=== PATIENT | male | born 1960 | race African-American/Black ===

== ENCOUNTER 2025-06-08 08:15 | Inpatient (IN) | payer MEDICARE, MEDICAID ==
[~2025-06-08] VITALS: Ht 180.3 cm; Wt 67.6 kg
[~2025-06-08 08:15] MED LIST: AMLO2.5T2; ASPI-1497; CALC0.253 PO; CLON0.1T PO; CLONIDINE; CLOP-31; CLOP75TA33 PO; FERR325T30 PO; FURO20TA4 PO; HYDR100T31 PO; ISOS10TA95 PO; LISI-186; METO25TA6 PO; NIFE-32 PO; OMEP20CA14 PO; SIMV-43 PO; SODI650T PO
[2025-06-08 08:59] LABS: BASOPHILS % 1.8 % (0.0-2.0); EOSINOPHILS % 9.7 % (0.0-5.0); HEMATOCRIT. 36.4 % (42.0-52.0); HEMOGLOBIN. 12.4 g/dL (14.0-18.0); LYMPHOCYTES % 35.9 % (20.0-50.0); MEAN PLATELET VOLUME 7.3 fl (7.4-10.4); MONOCYTES % 10.8 % (2.0-8.0); NEUTROPHILS % 41.8 % (40.0-76.0); PLATELET 199 x1000/uL (130-400); RED BLOOD CELL COUNT 4.06 mill/uL (4.7-6.1); RED CELL DISTRIBUTION WIDTH 14.1 % (11.6-14.6)
[2025-06-08 09:06] LABS: INR 0.9
[2025-06-08 09:14] LABS: UREA NITROGEN BLOOD 14 mg/dL (9-23)
[2025-06-08 09:15] LABS: ASPARTATE AMINOTRANSFERASE 19 IU/L (<34); TROPONIN I HIGH SENSITIVITY 50 ng/L (3.0-53)
[2025-06-08 09:16] LABS: BILIRUBIN DIRECT 0.1 mg/dL (<=3.0); BILIRUBIN TOTAL 0.3 mg/dL (0.1-1.0); PROTEIN TOTAL 6.2 g/dL (6.0-8.3)
[2025-06-08 09:27] LABS: CREATININE 3.8 mg/dL (0.6-1.3)
[2025-06-08 10:22] LABS: CLARITY URINE CLEAR (CLEAR); COLOR URINE YELLOW (YELLOW); GLUCOSE URINE TRACE (NEGATIVE); KETONES URINE NEGATIVE (NEGATIVE); LEUKOCYTE ESTERASE URINE NEGATIVE (NEGATIVE); NITRITE URINE NEGATIVE (NEGATIVE); OCCULT BLOOD URINE NEGATIVE (NEGATIVE); PH URINE >=9.0 (4.5-8.0); PROTEIN URINE 3+ (NEGATIVE); SPECIFIC GRAVITY URINE 1.006 (1.005-1.030); UROBILINOGEN URINE 0.2 E.U./dL (0.2-1.0)
[2025-06-08] MEDS: HYDRALAZINE 20MG/ML VIAL IV SCH (10:51)
[2025-06-08 11:29] LABS: HYALINE CASTS URINE 0-5 /lpf
[2025-06-08 11:30] LABS: BACTERIA URINE NONE SEEN; RBC URINE NONE SEEN /hpf (0-2); SQUAMOUS EPITHELIAL CELL URINE NONE SEEN /lpf (RARE/1+); WBC URINE 0-2 /hpf (0-2)
[2025-06-08 12:38] LABS: TROPONIN I HIGH SENSITIVITY 54 ng/L (3.0-53)
[2025-06-08] MEDS ORDERED: ONDANSETRON HCL 4MG/2ML INJ IV PRN (15:00)
[2025-06-08] MEDS ORDERED: ACETAMINOPHEN 325MG TABLET PO PRN (15:00)
[2025-06-08] MEDS ORDERED: NALOXONE HCL 0.4MG/ML VIAL IV PRN (15:00)
[2025-06-08] MEDS ORDERED: MORPHINE SULFATE 2 MG/ML INJ (NOT FOR IM USE) IV PRN (15:00)
[2025-06-08] MEDS ORDERED: MAGNESIUM/ALUMINUM HYDROXIDE/SIMETHICONE 30ML UDC PO PRN (15:00)
[2025-06-08] MEDS ORDERED: ZOLPIDEM TARTRATE 5MG TABLET PO PRN (15:00)
[2025-06-08] MEDS: LABETALOL 5MG/ML 4ML INJ IV SCH (15:08)
[2025-06-08] MEDS: ASPIRIN 325MG EC TABLET PO SCH (15:20)
[2025-06-08 15:45] VITALS: BP 152/87; PULSE 73; RESP 17; TEMP 36.3; TEMP 36.3624; O2SAT 96
[2025-06-08] MEDS: ENOXAPARIN 40MG/0.4ML SYR SUBCUT SCH (15:50)
[2025-06-08] MEDS: AMLODIPINE 5MG TABLET PO SCH (15:51)
[2025-06-08 16:00] VITALS: BP 152/87; PULSE 73; RESP 17; TEMP 36.3; O2SAT 96
[2025-06-08] MEDS: GUAIFENESIN-DM 200MG-20MG/10ML UDC PO PRN (17:02)
[2025-06-08] MEDS: FUROSEMIDE 20MG TABLET PO SCH (17:03)
[2025-06-08] MEDS: HYDRALAZINE HCL 100MG TABLET PO SCH (17:04)
[2025-06-08] MEDS: HYDROCODONE/ACETAMINOPHEN 5/325MG TABLET PO PRN (17:12)
[2025-06-08 20:00] VITALS: BP 166/103; PULSE 58; RESP 18; TEMP 35.6; O2SAT 96
[2025-06-08] MEDS: METOPROLOL TARTRATE 25MG TABLET PO SCH (21:00)
[2025-06-08] MEDS: CLONIDINE 0.1MG TABLET PO SCH (21:01)
[2025-06-09] VITALS (11 sets, daily range): BP systolic 159–189; BP diastolic 84–110; PULSE 8–86; RESP 18–20; TEMP 36.2–36.6696; O2SAT 95–99
[2025-06-09 00:58] LABS: TROPONIN I HIGH SENSITIVITY 68 ng/L (3.0-53)
[2025-06-09] MEDS: CLONIDINE 0.1MG TABLET PO PRN (05:27)
[2025-06-09 07:48] LABS: BASOPHILS % 2.5 % (0.0-2.0); EOSINOPHILS % 8.7 % (0.0-5.0); HEMATOCRIT. 39.8 % (42.0-52.0); HEMOGLOBIN. 13.3 g/dL (14.0-18.0); LYMPHOCYTES % 24.8 % (20.0-50.0); MEAN PLATELET VOLUME 8.0 fl (7.4-10.4); MONOCYTES % 12.2 % (2.0-8.0); NEUTROPHILS % 51.8 % (40.0-76.0); PLATELET 195 x1000/uL (130-400); RED BLOOD CELL COUNT 4.44 mill/uL (4.7-6.1); RED CELL DISTRIBUTION WIDTH 14.1 % (11.6-14.6)
[2025-06-09 08:12] LABS: UREA NITROGEN BLOOD 25.0 mg/dL (9-23)
[2025-06-09] MEDS: PANTOPRAZOLE SODIUM 40 MG/VIAL IV SCH (08:12)
[2025-06-09] MEDS: LISINOPRIL 5MG TABLET PO SCH (08:13)
[2025-06-09] MEDS: CALCITRIOL 0.25MCG CAPSULE PO SCH (08:14)
[2025-06-09] MEDS: ASPIRIN 81MG EC TABLET PO SCH (08:14)
[2025-06-09] MEDS: CLOPIDOGREL 75MG TABLET PO SCH (08:14)
[2025-06-09 08:30] LABS: CREATININE 5.7 mg/dL (0.6-1.3)
[2025-06-09 08:33] LABS: TROPONIN I HIGH SENSITIVITY 74 ng/L (3.0-53)
[2025-06-09 10:02] LABS: *AMPHETAMINES SCREEN URINE NEGATIVE (NEGATIVE)
[2025-06-09 10:03] LABS: *BARBITURATES SCREEN URINE NEGATIVE (NEGATIVE); *BENZODIAZEPINES SCREEN URINE NEGATIVE (NEGATIVE)
[2025-06-09 10:04] LABS: *COCAINE SCREEN URINE NEGATIVE (NEGATIVE); CANNABINOID URINE SCREEN NEGATIVE (NEGATIVE); ECSTASY MDMA SCREEN URINE NEGATIVE (NEGATIVE); METHADONE URINE SCREEN NEGATIVE (NEGATIVE); OPIATES URINE SCREEN NEGATIVE (NEGATIVE); PHENCYCLIDINE URINE SCREEN NEGATIVE (NEGATIVE)
[2025-06-09] MEDS: AMLODIPINE 5MG TABLET PO SCH (12:00)
[2025-06-09] MEDS: ENOXAPARIN 30MG/0.3ML SYR SUBCUT SCH (12:00)
[2025-06-09] MEDS: LISINOPRIL 10MG TABLET PO SCH (12:00)
[2025-06-09] MEDS: METOPROLOL TARTRATE 25MG TABLET PO SCH (12:00)
[2025-06-09 13:11] LABS: HEPATITIS A AB IGM NEGATIVE (Negative); HEPATITIS B CORE AB IGM NEGATIVE (Negative)
[2025-06-09 13:12] LABS: HEPATITIS C AB NON REACTIVE (Neg) (Negative)
[2025-06-09] MEDS: PREDNISONE 20MG TABLET PO SCH (21:31)
[2025-06-10] VITALS (10 sets, daily range): BP systolic 155–178; BP diastolic 68–100; PULSE 52–72; RESP 16–20; TEMP 36.3–36.7; O2SAT 95–98
[2025-06-10] MEDS: IPRATROPIUM/ALBUTEROL 0.5-3(2.5)MG/3ML NEB HHN SCH (02:02)
[2025-06-10 06:04] LABS: BASOPHILS % 0.8 % (0.0-2.0); EOSINOPHILS % 0.6 % (0.0-5.0); HEMATOCRIT. 41.6 % (42.0-52.0); HEMOGLOBIN. 13.7 g/dL (14.0-18.0); LYMPHOCYTES % 14.2 % (20.0-50.0); MEAN PLATELET VOLUME 7.8 fl (7.4-10.4); MONOCYTES % 3.3 % (2.0-8.0); NEUTROPHILS % 81.1 % (40.0-76.0); PLATELET 216 x1000/uL (130-400); RED BLOOD CELL COUNT 4.65 mill/uL (4.7-6.1); RED CELL DISTRIBUTION WIDTH 14.4 % (11.6-14.6)
[2025-06-10 06:15] LABS: UREA NITROGEN BLOOD 23.0 mg/dL (9-23)
[2025-06-10 06:50] LABS: CREATININE 5.7 mg/dL (0.6-1.3)
[2025-06-10] MEDS ORDERED: ALBU18HF2 IH (10:29)
[2025-06-10] MEDS ORDERED: PRED10TA MT (10:29)
[2025-06-10] MEDS ORDERED: GUAI5SYR3 MT (14:01)
[2025-06-10] MEDS ORDERED: LEVO250T74 MT (14:01)
[2025-06-10] MEDS ORDERED: FLUT1BLS INH (14:01)
[2025-06-10] MEDS: METHYLPREDNISOLONE SOD SUCC 40MG/ML (ACT-O-VIAL) IV SCH (15:11)
[2025-06-10] MEDS ORDERED: DOXAZOSIN MESYLATE 2MG TABLET PO SCH (21:00)
[2025-06-10] MEDS ORDERED: LISINOPRIL 10MG TABLET PO SCH (21:00)
== END 2025-06-10 16:45 | disposition home or self-care (01) | DRG 291 ==
LOC: ER 08:15 → 8WST 14:19 → EDBEDREQTM 14:32 → EDBEDREQ 14:32 → ENRESERV 15:01
PROVIDERS: ADMIT Internal Medicine; ATTEND Internal Medicine
PROC: 5A1D70Z Performance of Urinary Filtration, Intermittent, Less than 6 Hours Per Day (ICD-10-PCS; principal; 2025-06-09)
PROC: 5A1D70Z Performance of Urinary Filtration, Intermittent, Less than 6 Hours Per Day (ICD-10-PCS; 2025-06-10)
DX: I13.2 Hypertensive heart and chronic kidney disease with heart failure and with stage 5 chronic kidney disease, or end stage renal disease (principal); N18.6 End stage renal disease; I16.1 Hypertensive emergency; I50.9 Heart failure, unspecified; E78.00 Pure hypercholesterolemia, unspecified; I42.9 Cardiomyopathy, unspecified; D64.9 Anemia, unspecified; J40 Bronchitis, not specified as acute or chronic; D72.819 Decreased white blood cell count, unspecified; R00.1 Bradycardia, unspecified; I25.118 Atherosclerotic heart disease of native coronary artery with other forms of angina pectoris; Z95.5 Presence of coronary angioplasty implant and graft; I25.2 Old myocardial infarction; Z99.2 Dependence on renal dialysis; Z79.899 Other long term (current) drug therapy; Z79.02 Long term (current) use of antithrombotics/antiplatelets
CPT/HCPCS: 36415; 71045; 80048; 80076; 80305; 81003; 82962; 83880; 84443; 84484; 85025; 86705; 86709; 87340; 90935; 93005; 93306; 93970; 94070; 94640; 94664; 94760; 98960; 99291; J0360; J1650; J2060; J2470; J2919; J3490; J7512